=== PATIENT | female | born 1930 | race Caucasian/White ===

== ENCOUNTER → 2017-09-15 | Outpatient (CLI) | payer MEDICARE ==
[~2017-09-15] MED LIST: ACET-3017 PO; ALEN70TA43 PO; ASPI-1471 PO; CA C1TAB11 PO; CLIN300C99 PO; LEV100 PO; LEV112 PO; LEV125 PO; LEVO-3 PO; LEVO88TA45 PO; MET500 PO; METO-253 PO; METO-257 PO; METO25TA93 PO; MULT1CAP41 PO; PRED20TA6 PO
== END ==
LOC: LAB 13:28
PROVIDERS: ATTEND Emergency Medicine
DX: E03.9 Hypothyroidism, unspecified (principal)
CPT/HCPCS: 36415; 84443

== ENCOUNTER 2017-10-05 14:05 | Emergency (ER) | payer MEDICARE ==
--- NOTE | 2017-10-05 14:13 | ER Report ---
History and Physical Time Seen By MD: 14:12 HPI/ROS CHIEF COMPLAINT: Chest pain HISTORY OF PRESENT ILLNESS: This is an 87-year-old female who presents to the emergency department for chest pain. Patient states that she developed some chest pain 2 days ago, more epigastric. It today as he went for a walk with her dogs came home and then later she became slightly dizzy but not during the walk , had no increased chest pain during her walk and then decided to come in for further evaluation. Patient states that this pain is in the epigastric area does migrate up the esophagus but does not radiate to her shoulder her neck or lower back. Patient denies diaphoresis, aches, chills, nausea, vomiting, diarrhea or urinary discomfort. REVIEW OF SYSTEMS: Constitutional: No fever, no chills. Eyes: No discharge. ENT: No sore throat. Cardiovascular: As above. Respiratory: No cough, no shortness of breath. Gastrointestinal: As above. Genitourinary: No hematuria. Musculoskeletal: No back pain. Skin: No rashes. Neurological: No headache. Allergies: Coded Allergies: Penicillins (Verified Allergy, Intermediate, swells up, 10/05/17) azithromycin (Verified Adverse Reaction, Intermediate, Severe pruritus and rash, tongue swelling , ear ringing, 10/05/17) Home Meds Active Scripts Levothyroxine Sodium (LEVOTHYROXINE SODIUM) 0.125 Mg Tab, 0.125 MG PO QODAY, # 25 TAB Take 125 mcg tab twice a week and 112 on other days Prov:CARMEN MITCHELL MD 09/19/17 Levothyroxine Sodium (LEVOTHYROXINE SODIUM) 0.112 Mg Tab, 0.112 MG PO QODAY, # 65 TAB Prov:CARMEN MITCHELL MD 09/19/17 Metoprolol Tartrate (METOPROLOL TARTRATE) 50 Mg Tab, 1 TAB PO BID, #90 TAB 3 Refills Prov:CARMEN MITCHELL MD 05/23/17 Reported Medications Ca Carbonate/Vitamin D3/Vit K (VIACTIV SOFT CHEW TABLET) 1 Each Tab.chew, 1 EACH PO BID, TAB.CHEW 05/10/16 Discontinued Reported Medications Aspirin (ASPIR 81) 81 Mg Tablet.dr, 81 MG PO QDAY, TAB 11/26/14 Past Medical/Surgical History Patient has a past medical and surgical history of A. fib, pneumonia, muscle tear in the right foot, wears glasses, hard of hearing, thyroidectomy, lip lesion removed. Reviewed Nurses Notes: Yes Hx Smoking: No Smoking Status: Never Smoker Constitutional Vital Sign - Last 24 Hours 10/05/17 10/05/17 10/05/17 10/05/17 14:12 14:14 14:16 14:20 Temp 97.5 Pulse 105 100 Resp 16 B/P (MAP) 162/117 179/131 (147) 162/117 (132) Pulse Ox 95 O2 Delivery Room Air 10/05/17 10/05/17 10/05/17 10/05/17 14:30 14:35 15:00 15:05 Pulse 104 96 Resp 18 15 B/P (MAP) 147/106 (120) 152/93 (112) Pulse Ox 96 91 10/05/17 10/05/17 10/05/17 10/05/17 15:30 15:35 16:00 16:00 Pulse 86 Resp 12 B/P (MAP) 152/103 (119) 150/95 (113) 150/95 (113) Pulse Ox 93 10/05/17 10/05/17 16:30 17:00 B/P (MAP) 143/86 (105) 148/101 (117) Physical Exam General Appearance: The patient is alert, has no immediate need for airway protection and no signs of toxicity. Eyes: Pupils equal and round no pallor or injection. ENT, Mouth: Mucous membranes are moist. Hearing aid in left ear. Respiratory: There are no retractions, lungs are clear to auscultation. Cardiovascular: Irregular rate and rhythm, no murmurs, clicks or rubs. Gastrointestinal: Abdomen is soft and non tender, no masses, bowel sounds normal. Neurological: Alert and oriented 4. Moving all extremities. Following all commands. No focal neuro deficits. Skin: Warm and dry, no rashes. Musculoskeletal: Neck is supple non tender. Extremities are nontender, nonswollen and have full range of motion. DIFFERENTIAL DIAGNOSIS: After history and physical exam differential diagnosis was considered for chest pain including but not limited to myocardial ischemia, pericarditis pulmonary embolus, chest wall pain, pleural inflammation and pulmonary infectious causes. Medical Decision Making Data Points Result Diagram: 10/05/17 1420 10/05/17 1420 Laboratory Hematology Test 10/05/17 14:20 Red Blood Count 4.64 M/uL (4.17-5.56) Mean Corpuscular Volume 93.4 fL (80.0-96.0) Mean Corpuscular Hemoglobin 31.7 pg (26.0-33.0) Mean Corpuscular Hemoglobin Concent 34.0 g/dL (32.0-36.0) Red Cell Distribution Width 14.3 % (11.5-14.5) Mean Platelet Volume 9.5 fL (7.2-11.1) Neutrophils (%) (Auto) 60.7 % (39.4-72.5) Lymphocytes (%) (Auto) 19.4 % (17.6-49.6) Monocytes (%) (Auto) 10.1 % (4.1-12.4) Eosinophils (%) (Auto) 8.8 % (0.4-6.7) Basophils (%) (Auto) 1.0 % (0.3-1.4) Nucleated RBC Relative Count (auto) 0.1 /100WBC Neutrophils # (Auto) 3.5 K/uL (2.0-7.4) Lymphocytes # (Auto) 1.1 K/uL (1.3-3.6) Monocytes # (Auto) 0.6 K/uL (0.3-1.0) Eosinophils # (Auto) 0.5 K/uL (0.0-0.5) Basophils # (Auto) 0.1 K/uL (0.0-0.1) Nucleated RBC Absolute Count (auto) 0.00 K/uL Prothrombin Time 14.2 seconds (12.0-14.4) Prothromb Time International Ratio 1.10 D-Dimer Quantitative (PE/DVT) 1.58 ug/ml (0-0.50) Sodium Level 131 mmol/L (137-145) Potassium Level 4.1 mmol/L (3.5-5.0) Chloride Level 94 mmol/L (98-107) Carbon Dioxide Level 26 mmol/L (22-31) Blood Urea Nitrogen 12 mg/dl (7-18) Creatinine 0.90 mg/dl (0.52-1.04) Glomerular Filtration Rate Calc 59.5 Random Glucose 90 mg/dl (75-110) Calcium Level 9.7 mg/dl (8.4-10.2) Magnesium Level 2.1 mg/dl (1.7-2.2) Total Bilirubin 1.1 mg/dl (0.2-1.3) Aspartate Amino Transf (AST/SGOT) 28 U/L (0-35) Alanine Aminotransferase (ALT/SGPT) 24 U/L (0-56) Alkaline Phosphatase 64 U/L (0-126) Troponin I < 0.012 ng/ml B-Type Natriuretic Peptide 180 pg/ml (0-100) Total Protein 7.6 gm/dl (6.3-8.2) Albumin 4.5 g/dl (3.5-5.0) Chemistry Test 10/05/17 14:20 White Blood Count 5.8 k/uL (4.5-11.0) Red Blood Count 4.64 M/uL (4.17-5.56) Hemoglobin 14.7 g/dL (12.0-16.0) Hematocrit 43.4 % (34.0-47.0) Mean Corpuscular Volume 93.4 fL (80.0-96.0) Mean Corpuscular Hemoglobin 31.7 pg (26.0-33.0) Mean Corpuscular Hemoglobin Concent 34.0 g/dL (32.0-36.0) Red Cell Distribution Width 14.3 % (11.5-14.5) Platelet Count 159 K/uL (150-450) Mean Platelet Volume 9.5 fL (7.2-11.1) Neutrophils (%) (Auto) 60.7 % (39.4-72.5) Lymphocytes (%) (Auto) 19.4 % (17.6-49.6) Monocytes (%) (Auto) 10.1 % (4.1-12.4) Eosinophils (%) (Auto) 8.8 % (0.4-6.7) Basophils (%) (Auto) 1.0 % (0.3-1.4) Nucleated RBC Relative Count (auto) 0.1 /100WBC Neutrophils # (Auto) 3.5 K/uL (2.0-7.4) Lymphocytes # (Auto) 1.1 K/uL (1.3-3.6) Monocytes # (Auto) 0.6 K/uL (0.3-1.0) Eosinophils # (Auto) 0.5 K/uL (0.0-0.5) Basophils # (Auto) 0.1 K/uL (0.0-0.1) Nucleated RBC Absolute Count (auto) 0.00 K/uL Prothrombin Time 14.2 seconds (12.0-14.4) Prothromb Time International Ratio 1.10 D-Dimer Quantitative (PE/DVT) 1.58 ug/ml (0-0.50) Glomerular Filtration Rate Calc 59.5 Calcium Level 9.7 mg/dl (8.4-10.2) Magnesium Level 2.1 mg/dl (1.7-2.2) Total Bilirubin 1.1 mg/dl (0.2-1.3) Aspartate Amino Transf (AST/SGOT) 28 U/L (0-35) Alanine Aminotransferase (ALT/SGPT) 24 U/L (0-56) Alkaline Phosphatase 64 U/L (0-126) Troponin I < 0.012 ng/ml B-Type Natriuretic Peptide 180 pg/ml (0-100) Total Protein 7.6 gm/dl (6.3-8.2) Albumin 4.5 g/dl (3.5-5.0) Coagulation Test 10/05/17 14:20 Prothrombin Time 14.2 seconds Prothromb Time International Ratio 1.10 D-Dimer Quantitative (PE/DVT) 1.58 ug/ml EKG/Imaging EKG Interpretation 12 lead EKG: Rhythm: Atrial fibrillation, 96 bpm. [place]: normal QRS: normal ST segments: No ST depression or elevation. No significant changes from the 11/14/2015 EKG other than flattened T wave in the old EKG. [place] [facility] [place]: Rosa Posada : 1930 Visit/Account:[id number] Date of Sevice: 10/05/2017 CT angiogram chest with contrast Indication: Chest pain Comparison: None available. Technique: Axial CT images are obtained through the chest after administration of 75 mL Isovue 370 IV contrast. Reformatted coronal and sagittal images were reviewed as well as coronal MIP images. One of the following dose optimization techniques was utilized in the performance of this exam: automated exposure control; adjustment of the mA and/ or kV according to the patient's size; or use of an iterative reconstruction technique. Specific details can be referenced in the facility's radiology CT exam operational policy. FINDINGS: No evidence of filling defect within the pulmonary vasculature to suggest pulmonary embolus. The heart is enlarged more so the right atrium and right ventricle. The right ventricle measures up to 6 cm and left ventricle measures up to 3 cm. No pericardial effusion. The aorta shows no indication of aneurysm. The aorta is not well opacified to assess for dissection. The mediastinum and hilar regions show no enlarged lymph node or abnormal density. Lungs show mild dependent atelectasis and scarring. Postinflammatory changes seen in both apices without nodularity. Chest wall the right hemidiaphragm is a 6 mm nodule seen in the anterior lateral aspect of the right lower lobe on image #85, series #7. No other discrete nodules. No consolidation, pleural effusion or pneumothorax. No focal interstitial opacities. Airways are clear. There is worsening compression the inferior endplate of the T12 vertebral body with mild retropulsion of the inferior aspect. This is increased from previous chest x-ray on 11/14/2015. No other compression fractures. No acute fractures or discrete bony lesions. Chest wall shows no enlarged axillary lymph nodes or masses. Limited views of the upper abdomen are unremarkable. IMPRESSION: 1. No evidence of pulmonary embolus. 2. No acute cardiopulmonary disease. 3. Cardiomegaly, more right sided. 4. Worsening compression of the T12 vertebral body with mild retropulsion of the inferior aspect. 5. 6 mm right lung nodule. This is nonspecific and too small characterize. Suggest follow-up per Fleischner guidelines described below. FLEISCHNER SOCIETY FOLLOW-UP GUIDELINES FOR NEWLY DETECTED INCIDENTAL NODULES IN PERSONS 35 YEARS OF AGE OR OLDER. *THESE RECOMMENDATIONS DO NOT APPLY TO LUNG CANCER SCREENING, PATIENTS WITH IMMUNOSUPPRESSION , OR PATIENTS WITH KNOWN PRIMARY MALIGNANCY. SOLITARY SOLID NODULES If nodule size is less than 6 mm: Low risk patient - no follow up needed High risk patient - Optional CT at 12 months. If nodule size is 6-8 mm: Low risk patient - follow up CT at 6-12 months, then consider CT at 18-24 months if no change. High risk patient - follow up CT at 6-12 months, then CT at 18-24 months if no change. If nodule size is greater than 8 mm: Low risk patient - Consider CT at 3, 9 months, and 24 months; or PET/CT, or tissue sampling, or a combination thereof. High risk patient - Consider CT at 3, 9 months, and 24 months; or PET/CT, or tissue sampling, or a combination thereof. LOW RISK PATIENT: Minimal or absent history of tobacco use and of other known risk factors. HIGH RISK PATIENT: Tobacco use, family history of lung cancer, upper pulmonary lobe location of nodule, presence of emphysema, pulmonary fibrosis, older age. Lawrence H, Nando DP, Steffany JM, et al. Guidelines for Management of Incidental Pulmonary Nodules Detected on CT Images: From the Fleischner Society 2017. Radiology. Report Dictated By: Hi Meneses at 10/05/2017 4:07 PM Report E-Signed By: Hi Meneses at 10/05/2017 4:26 PM WSN:[id number] Location[place] [facility] [place] Patient: Rosa Posada : 1930 Visit/Account:[id number] Date of Sevice: 10/05/2017 2 VIEWS CHEST INDICATION: Lump in chest feeling. COMPARISON: 11/14/2015 report. Images unable to view. FINDINGS: Cardiomediastinal silhouette and pulmonary vessels within normal limits. There is no focal infiltrate or lobar consolidation. There is no pneumothorax or pleural effusion. No nodule. Postinflammatory changes seen in the apices. Upper abdomen is unremarkable. No acute bony abnormality. There is compression of the T12 vertebral body without retropulsion. IMPRESSION: 1. No acute cardiopulmonary process. 2. Compression of the T12 vertebral body, age of which is indeterminate. Report Dictated By: Hi Meneses at 10/05/2017 2:57 PM Report E-Signed By: Hi Meneses at 10/05/2017 3:00 PM WSN:[id number] ED Course/Re-evaluation Clinical Indication for ER IV: Hydration, IV Access ED Course Patient was admitted to room. History and physical were obtained. Differential diagnoses were considered. An IV was started. A CBC, CMP, troponin, d-dimer were obtained.TSH is pending. D-dimer 1.58. Chest x-ray was unremarkable. A CTA was obtained. No acute findings, no PE. However there was an incidental finding of a 6 mm nodule on the right lung. Patient was instructed to follow-up with her primary care provider for possible repeat CT in 6 months. Patient was also instructed to follow-up with her primary care provider for possible anticoagulation. I did review these results with the patient and her significant other, they had no other questions or concerns. The patient to return to emergency department for any other concerns or worsening symptoms, the patient was discharged home. I did tell the patient that there was an incidental finding of a nodule on her CT. I did instruct her to follow-up with her primary care provider next week. Decision to Disposition Date: Oct 05, 2017 Decision to Disposition Time: 16:47 Depart Departure Latest Vital Signs Vital Signs Date Time Temp Pulse Resp B/P (MAP) Pulse Ox O2 Delivery O2 Flow Rate FiO2 10/05/17 17:00 148/101 (117) 10/05/17 15:35 86 12 93 10/05/17 14:12 97.5 Room Air Impression: Primary Impression: Chest pain Additional Impression: Afib Condition: Improved Disposition: HOME OR SELF-CARE Referrals: CARMEN MITCHELL MD (PCP) Patient Instructions: A-fib (Atrial Fibrillation) (ED), Chest Pain (ED) Additional Instructions: Drink plenty of water. Get plenty of rest. Follow up with your doctor as scheduled. Continue taking your current medications. Please speak with your provider about anticoagulation for Afib. May return to the ED for worsening symptoms. Problem Qualifiers Primary Impression: Chest pain Chest pain type: unspecified Qualified Codes: R07.9 - Chest pain, unspecified Additional Impression: Afib Atrial fibrillation type: chronic Qualified Codes: I48.2 - Chronic atrial fibrillation JEN VAUGHNP-BC Oct 05, 2017 14:13
[2017-10-05] MEDS ORDERED: NS(*) 0.9% 500 ML BAG 500 ML IV ONE (14:33)
[2017-10-05] MEDS ORDERED: ASPIRIN 81 MG CHEW PO ONE (14:35)
--- NOTE | 2017-10-05 14:36 | EKG ---
FACILITY: [facility] - [place] PATIENT NAME: OSMANY HINES : [id number] MR: [id number] V: [id number] EXAM DATE: ORDERING PHYSICIAN: JEN VAUGHN TECHNOLOGIST: NANCY Alejo Reason : IRREG HR Blood Pressure : / mmHG Vent. Rate : 096 BPM Atrial Rate : 096 BPM P-R Int : 000 ms QRS Dur : 076 ms QT Int : 368 ms P-R-T Axes : 000 057 053 degrees QTc Int : 464 ms Atrial fibrillation Cannot rule out Anteroseptal infarct (cited on or before 18-JAN-2015) Abnormal ECG When compared with ECG of 14-NOV-2015 22:45, No significant change was found Confirmed by BELEN ESTES ([id number]) on 10/06/2017 2:32:54 AM Referred By: MORGAN Confirmed By:BELEN ESTES
[2017-10-05 14:40] LABS: PLATELET COUNT, AUTOMATED 159 K/uL (150-450)
[2017-10-05 15:00] LABS: INR 1.1
--- NOTE | 2017-10-05 15:04 | RADIOLOGY IMAGING REPORT ---
[place] [facility] [place] Rosa Posada : 1930 MR: [id number] V: [id number] EXAM DATE: ORDERING PHYSICIAN: JEN VAUGHN TECHNOLOGIST: Location: [facility] Patient: Rosa Posada : 1930 Visit/Account:[id number] Date of Sevice: 10/05/2017 2 VIEWS CHEST INDICATION: Lump in chest feeling. COMPARISON: 11/14/2015 report. Images unable to view. FINDINGS: Cardiomediastinal silhouette and pulmonary vessels within normal limits. There is no focal infiltrate or lobar consolidation. There is no pneumothorax or pleural effusion. No nodule. Postinflammatory changes seen in the apices. Upper abdomen is unremarkable. No acute bony abnormality. There is compression of the T12 vertebral b florinda without retropulsion. IMPRESSION: 1. No acute cardiopulmonary process. 2. Compression of the T12 vertebral body, age of which is indeterminate. Report Dictated By: Hi Meneses at 10/05/2017 2:57 PM Report E-Signed By: Hi Meneses at 10/05/2017 3:00 PM WSN:[id number]
[2017-10-05] MEDS ORDERED: IOPAMIDOL 76% 50 ML INFUS BTL 50 ML ONE (15:41)
[2017-10-05] MEDS ORDERED: NS 0.9% 50 ML VIAL 100 ML ONE (15:41)
--- NOTE | 2017-10-05 16:31 | RADIOLOGY IMAGING REPORT ---
[place] [facility] [place]: Rosa Posada : 1930 MR: [id number] V: [id number] EXAM DATE: ORDERING PHYSICIAN: JEN VAUGHN TECHNOLOGIST: Location: [facility] Patient: Rosa Posada : 1930 Visit/Account:[id number] Date of Sevice: 10/05/2017 CT angiogram chest with contrast Indication: Chest pain Comparison: None available. Technique: Axial CT images are obtained through the chest after administration of 75 mL Isovue 370 IV contrast. Reformatted coronal and sagittal images were reviewed as well as coronal MIP images. One of the following dose optimization techniques was utilized in the performance of this exam: auto mated exposure control; adjustment of the mA and/or kV according to the patient's size; or use of an iterative reconstruction technique. Specific details can be referenced in the facility's radiology C T exam operational policy. FINDINGS: No evidence of filling defect within the pulmonary vasculature to suggest pulmonary embolus. The heart is enlarged more so the right atrium and right ventricle. The right ventricle measures up t o 6 cm and left ventricle measures up to 3 cm. No pericardial effusion. The aorta shows no indication of aneurysm. The aorta is not well opacified to assess for dissection. The mediastinum and hilar reg ions show no enlarged lymph node or abnormal density. Lungs show mild dependent atelectasis and scarring. Postinflammatory changes seen in both apices with out nodularity. Chest wall the right hemidiaphragm is a 6 mm nodule seen in the anterior lateral aspe ct of the right lower lobe on image #85, series #7. No other discrete nodules. No consolidation, pleu ral effusion or pneumothorax. No focal interstitial opacities. Airways are clear. There is worsening compression the inferior endplate of the T12 vertebral body with mild retropulsion of the inferior aspect. This is increased from previous chest x-ray on 11/14/2015. No other compressi on fractures. No acute fractures or discrete bony lesions. Chest wall shows no enlarged axillary lymp h nodes or masses. Limited views of the upper abdomen are unremarkable. IMPRESSION: 1. No evidence of pulmonary embolus. 2. No acute cardiopulmonary disease. 3. Cardiomegaly, more right sided. 4. Worsening compression of the T12 vertebral body with mild retropulsion of the inferior aspect. 5. 6 mm right lung nodule. This is nonspecific and too small characterize. Suggest follow-up per Fleashish diallo guidelines described below. FLEISCHNER SOCIETY FOLLOW-UP GUIDELINES FOR NEWLY DETECTED INCIDENTAL NODULES IN PERSONS 35 YEARS OF AGE OR OLDER. *THESE RECOMMENDATIONS DO NOT APPLY TO LUNG CANCER SCREENING, PATIENTS WITH IMMUNOSUPPRESSION , OR PA TIENTS WITH KNOWN PRIMARY MALIGNANCY. SOLITARY SOLID NODULES If nodule size is less than 6 mm: Low risk patient - no follow up needed High risk patient - Optional CT at 12 months. If nodule size is 6-8 mm: Low risk patient - follow up CT at 6-12 months, then consider CT at 18-24 months if no change. High risk patient - follow up CT at 6-12 months, then CT at 18-24 months if no change. If nodule size is greater than 8 mm: Low risk patient - Consider CT at 3, 9 months, and 24 months; or PET/CT, or tissue sampling, or a com bination thereof. High risk patient - Consider CT at 3, 9 months, and 24 months; or PET/CT, or tissue sampling, or a co mbination thereof. LOW RISK PATIENT: Minimal or absent history of tobacco use and of other known risk factors. HIGH RISK PATIENT: Tobacco use, family history of lung cancer, upper pulmonary lobe location of nodul e, presence of emphysema, pulmonary fibrosis, older age. Lawrence H, Nando DP, Steffany SALCEDO, et al. Guidelines for Management of Incidental Pulmonary Nodules Dete cted on CT Images: From the Fleischner Society 2017. Radiology. Report Dictated By: Hi Meneses at 10/05/2017 4:07 PM Report E-Signed By: Hi Meneses at 10/05/2017 4:26 PM WSN:[id number]
[2017-10-05 17:00] VITALS: BP 148/101
== END 2017-10-05 17:25 | disposition home or self-care (01) ==
LOC: ER 14:09
DX: I48.2 Chronic atrial fibrillation (principal); R91.1 Solitary pulmonary nodule
CPT/HCPCS: 71046; 71275; 83735; 83880; 84443; 84484; 85025; 85379; 85610; 93005; 99284; A9270; J7040; J7050; Q9967; 82040; 82247; 82310; 82374; 82435; 82565; 82947; 84075; 84132; 84155; 84295; 84450; 84460; 84520

== ENCOUNTER → 2017-12-05 | Outpatient (CLI) | payer MEDICARE ==
[~2017-12-05] MED LIST changes: +APIX2.5T PO
--- NOTE | 2017-12-07 16:39 | RT HOLTER TEST ---
FACILITY: [facility] - [place] PATIENT NAME: OSMANY HINES : [id number] MR: [id number] V: [id number] EXAM DATE: ORDERING PHYSICIAN: SENDY RUSSELL TECHNOLOGIST: OXANA Cartwright-mera date: 2017-12-05 11:09:00 Duration: 47:45:00 Test Indications: AFIB Medications: N/A [id number] QRS complexes 52 Ventricular ectopics which represent <1 % of total QRS comp. * Supraventricular ectopics which represent % of total QRS comp. * Paced QRS complexes which represent % of total QRS comp. VENTRICULAR ECTOPY 48 Isolated 0 Bigeminal Cycles 2 Couplets 0 Runs 0 Beats in Runs * Beats LONGEST at * BPM at :: -- * Beats FASTEST at * BPM at :: -- SUPRAVENTRICULAR ECTOPY * Isolated * Couplets * Runs * Beats in Runs * Beats LONGEST at * BPM at :: -- * Beats FASTEST at * BPM at :: -- HEART RATES 61 MIN at 17:41:54 2017-12-05 91 AVG 142 MAX at 10:39:23 2017-12-07 LONGEST RR 1.800 secs at 18:55:59 2017-12-05 S-T LEVELS Channel 1 -12.800 mm MIN at 11:09:00 2017-12-05 -12.800 mm MAX at 11:09:00 2017-12-05 Channel 2 -12.800 mm MIN at 11:09:00 2017-12-05 -12.800 mm MAX at 11:09:00 2017-12-05 Channel 3 -12.800 mm MIN at 11:09:00 2017-12-05 -12.800 mm MAX at 11:09:00 2017-12-05 Atrial fibrillation / Atrial flutter Premature ventricular complexes Confirmed by BELEN ESTES ([id number]) on 12/07/2017 4:39:37 PM Referred By: Overread By: BELEN ESTES
== END ==
LOC: RESP 03:02
PROVIDERS: ATTEND Internal Medicine Clinical Cardiac Electrophysiology
DX: I48.1 Persistent atrial fibrillation (principal); I48.92 Unspecified atrial flutter
CPT/HCPCS: 93225; 93226

== ENCOUNTER → 2017-12-07 | Outpatient (CLI) | payer MEDICARE ==
--- NOTE | 2017-12-08 08:55 | RADIOLOGY IMAGING REPORT ---
FACILITY: [facility] PATIENT NAME: OSMANY HINES : [id number] MR: [id number] V: [id number] EXAM DATE: ORDERING PHYSICIAN: CARMEN MITCHELL TECHNOLOGIST: Tracy Jeronimo EXAMINATION:TWO-DIMENSIONAL ECHOCARDIOGRAPH REASON:ATRIAL FIBRILLATION 2D Measurements (normal values in centimeters) LV endLV endRV endVent.LV PostAorticLeftPercent DiastolicSystolicDiastolicSeptumWallRootAtriumShortening (3.5-5.7)(0.9-2.6)(0.6-1.1)(0.6-1.1)(2.0-3.7)(1.9-4.0)(25-35%) [id number]% STROKE VOLUME: 40ml ESTIMATED EJECTION FRACTION:54% PARASTERNAL LONG AXIS: Overall left ventricular systolic function appears to be normal. Left ventricle appears to be enlarged. No left ventricular thickening is noted. Aortic valve & mitral valve both appear to open normally. Color examination of the mitral valve reveals some mitral insufficiency. Color examination of the aortic valve revealed some aortic insufficiency present. Patient appears to be in atrial fibrillation. No thrombi are noted & the left atrial appendage is not seen in this view. Right ventricle appears to contract normally & the TAPSE is measured at 2.0. PARASTERNAL SHORT AXIS: Overall left ventricular function again appears to be normal. No wall motion abnormalities are noted. Right ventricle is the upper range of normal in size. Aortic valve is trileaflet in configuration & appears to open normally. Color examination of the valves reveals some tricuspid insufficiency & a trace of pulmonic insufficiency present. APICAL FOUR AND TWO CHAMBER: Again normal left ventricular systolic function. Right ventricle also appears to contract normally. The left atrium is mildly enlarged at 31ml/m2. Right atrium is borderline severely enlarged at 41ml/m2. The aortic valve area was measured within normal ranges at 1.9cm2. Dimensionless index was measured at .7. Color examination of the valves reveals moderate to borderline severe amount of mitral insufficiency & moderate to borderline severe amount of tricuspid insufficiency. The tricuspid regurgitation Vmax measured 3.63m/sec. Estimated right atrial pressure is 15mm Hg giving a total right ventricular pressure of 68mm Hg approximately. The regurgitation jet of the mitral valve was directed toward the free wall of the left atrium. The mitral regurgitant volume was 80ml & the effective regurgitant orifice was .48cm indicating severe mitral insufficiency present. SUBCOSTAL VIEW: No pericardial effusion was noted. No atrioseptal or ventriculoseptal defects were appreciated. The IVC is enlarged. The aortic insufficiency pressure half time was measured at 337msec. OVERALL IMPRESSION: 1. Normal left ventricular ejection fraction of 54%. We were unable to accurately characterize the diastolic function as the patient is in atrial fibrillation with a controlled rate. No thrombi were noted & the left atrial appendage was not seen. 2. Severe enlargement of the right atrium. Borderline enlargement of the right ventricle. Mild enlargement of the left atrium. 3. Aortic valve is trileaflet in configuration with minimal aortic sclerosis & a moderate amount of aortic insufficiency. No stenosis of the valves was noted. 4. A moderate to borderline severe amount of tricuspid insufficiency with estimated right ventricular systolic pressures of 68mm Hg which does include an estimated right atrial pressure of 15mm Hg indicating severe pulmonary hypertension & increased right ventricular systolic pressures. 5. Moderate to severe amount of mitral insufficiency. Regurgitant volume was 80ml & the effective regurgitant orifice was .48cm. 6. There is a trace of pulmonic insufficiency present. Dictated by: Brad Williamson M.D. on 12/07/2017 at 17:27 Transcribed by: ANNMARIE on 12/08/2017 at 8:30 Approved by: Brad Williamson M.D. on 12/08/2017 at 8:54 [facility]
== END ==
LOC: US 11:11
PROVIDERS: ATTEND Internal Medicine Clinical Cardiac Electrophysiology
DX: I48.1 Persistent atrial fibrillation (principal); I51.7 Cardiomegaly; I25.10 Atherosclerotic heart disease of native coronary artery without angina pectoris; I35.1 Nonrheumatic aortic (valve) insufficiency; I07.1 Rheumatic tricuspid insufficiency; I27.20 Pulmonary hypertension, unspecified; I34.0 Nonrheumatic mitral (valve) insufficiency; I37.1 Nonrheumatic pulmonary valve insufficiency
CPT/HCPCS: 93306

== ENCOUNTER → 2019-04-05 | Outpatient (CLI) | payer MEDICARE | LOC: LAB 14:04 | PROVIDERS: ATTEND Internal Medicine Endocrinology, Diabetes & Metabolism | DX: E89.0 Postprocedural hypothyroidism (principal) | CPT/HCPCS: 36415; 84439; 84443; 84480 ==